=== PATIENT | female | born 1965 | race Two or more races ===

== ENCOUNTER 2020-02-17 05:52 | Emergency (ER) | payer OTHER ==
[~2020-02-17] VITALS: Ht 170.2 cm; Wt 63.5 kg
[2020-02-17] MEDS ORDERED: NORVASC2.5 M1 (06:19)
[2020-02-17] MEDS ORDERED: NORFLEX100MG PO (14:49)
[2020-02-17] MEDS ORDERED: KETO10TA2 PO (14:49)
== END 2020-02-17 14:56 | disposition home or self-care (01) ==
LOC: ER 05:52
DX: M79.605 Pain in left leg (principal); M54.5 Low back pain